=== PATIENT | female | born 1980 | race African-American/Black ===

== ENCOUNTER 2019-01-14 02:31 | Emergency (ER) | payer MEDICAID ==
[~2019-01-14] VITALS: Ht 172.7 cm; Wt 56.8 kg
[2019-01-14 03:07] LABS: BASOPHILS % (AUTO) 1.6 % (0.0-2.0); EOSINOPHILS % (AUTO) 4.8 % (1.0-6.0); HEMATOCRIT 31.2 % (36-46); HEMOGLOBIN 9.9 g/dL (12.0-16.0); LYMPHOCYTES # (AUTO) 1.9 K/uL (1.0-4.8); MEAN CORPUSCULAR HEMOGLOBIN 21.7 pg (26.0-34.0); MEAN CORPUSCULAR HGB CONC 31.8 G/dL (31.0-37.0); MEAN CORPUSCULAR VOLUME 68 fL (80-100); MONOCYTES # (AUTO) 0.5 K/uL (0.1-1.0); MONOCYTES % (AUTO) 10.9 % (2.0-9.0); NEUTROPHILS # (AUTO) 1.7 K/uL (1.8-7.7); NEUTROPHILS % (AUTO) 39.7 % (40.0-70.0); PLATELET COUNT (AUTO) 285 K/uL (150-450); RED BLOOD CELL COUNT(AUTO) 4.57 MIL/uL (4.00-5.20); RED CELL DISTRIBUTION WIDTH 19.2 % (11.5-14.5)
[2019-01-14 03:19] LABS: ANION GAP 6 mmol/L (8-16); CALCIUM, TOTAL 9.1 mg/dL (8.8-10.5); CARBON DIOXIDE 30 mmol/L (22-29); CHLORIDE 105 mmol/L (98-107); CREATININE 1.07 mg/dL (0.60-1.30); GLOMERULAR FILTR. RATE CALC > 60 mL/min (>60); GLUCOSE,RANDOM 120 mg/dL (70-110); POTASSIUM 3.4 mmol/L (3.5-5.1); SODIUM SERUM 141 mmol/L (136-145); UREA NITROGEN, BLOOD 11 mg/dL (7-18)
[2019-01-14 03:26] LABS: AMPHET/METH SCREEN,URINE NEGATIVE (NEGATIVE); BARBITURATE SCREEN, URINE NEGATIVE (NEGATIVE); BENZODIAZEPINES SCREEN,URINE NEGATIVE (NEGATIVE); CANNABINOID SCREEN,URINE NEGATIVE (NEGATIVE); COCAINE SCREEN,URINE POSITIVE (NEGATIVE); METHADONE SCREEN, URINE NEGATIVE (NEGATIVE); OPIATE SCREEN,URINE NEGATIVE (NEGATIVE)
[2019-01-14 03:27] LABS: PHENCYCLIDINE SCREEN,URINE NEGATIVE (NEGATIVE)
[2019-01-14 03:29] LABS: ALANINE AMINOTRANSFERASE 15 U/L (12-78); ALBUMIN 3.4 g/dL (3.4-5.0); ALKALINE PHOSPHATASE 73 U/L (46-116); ASPARTATE AMINOTRANSFERASE 18 U/L (15-37); BILIRUBIN,TOTAL 0.3 mg/dL (0.1-1.0); HCG,QUANTITATIVE < 1 mIU/mL (0-6); TOTAL PROTEIN, SERUM 7.3 g/dL (6.4-8.2)
[2019-01-14 05:04] VITALS: BP 119/79
[2019-01-14] MEDS ORDERED: POVIDONE-IODINE 10% 120 ML SOLUTION TP ONE (05:30)
== END 2019-01-14 06:00 | disposition home or self-care (01) ==
LOC: EMS 02:34
DX: F20.9 Schizophrenia, unspecified (principal); E11.9 Type 2 diabetes mellitus without complications; F03.90 Unspecified dementia, unspecified severity, without behavioral disturbance, psychotic disturbance, mood disturbance, and anxiety
CPT/HCPCS: 36415; 80053; 80307; 84702; 85025; 99284; G0480

== ENCOUNTER 2019-09-20 03:37 | Emergency (ER) | payer MEDICAID ==
[~2019-09-20] VITALS: Ht 175.3 cm; Wt 50.0 kg
[2019-09-20 04:33] LABS: APPEARANCE,URINE CLOUDY (CLEAR); BILIRUBIN,URINE NEGATIVE (NEGATIVE); GLUCOSE, URINE (UA) NEGATIVE (NEGATIVE); KETONES,URINE NEGATIVE (NEGATIVE); LEUKOCYTE ESTERASE ,URINE MODERATE (NEGATIVE); NITRATE,URINE POSITIVE (NEGATIVE); OCCULT BLOOD,URINE NEGATIVE (NEGATIVE); PROTEIN,URINE NEGATIVE (NEGATIVE)
[2019-09-20 04:39] LABS: AMPHET/METH SCREEN,URINE NEGATIVE (NEGATIVE); BARBITURATE SCREEN, URINE NEGATIVE (NEGATIVE); BENZODIAZEPINES SCREEN,URINE NEGATIVE (NEGATIVE); CANNABINOID SCREEN,URINE NEGATIVE (NEGATIVE); COCAINE SCREEN,URINE POSITIVE (NEGATIVE); METHADONE SCREEN, URINE NEGATIVE (NEGATIVE); OPIATE SCREEN,URINE NEGATIVE (NEGATIVE); PHENCYCLIDINE SCREEN,URINE NEGATIVE (NEGATIVE)
[2019-09-20 04:41] LABS: BACTERIA,URINE Many /HPF (None Seen); RBC,URINE 0-2 /HPF (0-2); SQUAMOUS EPITHELIAL CELL,UR Many /LPF (None Seen)
[2019-09-20 04:45] LABS: BASOPHILS % (AUTO) 1.3 % (0.0-2.0); EOSINOPHILS % (AUTO) 2.8 % (1.0-6.0); HEMATOCRIT 31.7 % (36-46); LYMPHOCYTES # (AUTO) 1.4 K/uL (1.0-4.8); LYMPHOCYTES % (AUTO) 20.8 % (22.0-44.0); MEAN CORPUSCULAR HEMOGLOBIN 22.2 pg (26.0-34.0); MEAN CORPUSCULAR HGB CONC 31.6 G/dL (31.0-37.0); MEAN CORPUSCULAR VOLUME 70 fL (80-100); MONOCYTES # (AUTO) 0.7 K/uL (0.1-1.0); MONOCYTES % (AUTO) 10.5 % (2.0-9.0); NEUTROPHILS # (AUTO) 4.3 K/uL (1.8-7.7); NEUTROPHILS % (AUTO) 64.6 % (40.0-70.0); PLATELET COUNT (AUTO) 384 K/uL (150-450); RED BLOOD CELL COUNT(AUTO) 4.52 MIL/uL (4.00-5.20); RED CELL DISTRIBUTION WIDTH 18.9 % (11.5-14.5)
[2019-09-20 04:53] LABS: ANION GAP 5 mmol/L (8-16); CARBON DIOXIDE 30 mmol/L (22-29); CHLORIDE 102 mmol/L (98-107); CREATININE 0.89 mg/dL (0.60-1.30); GLOMERULAR FILTR. RATE CALC > 60 mL/min (>60); GLUCOSE,RANDOM 108 mg/dL (70-110); POTASSIUM 3.2 mmol/L (3.5-5.1); SODIUM SERUM 137 mmol/L (136-145); UREA NITROGEN, BLOOD 6 mg/dL (7-18)
[2019-09-20 05:05] LABS: ALANINE AMINOTRANSFERASE 21 U/L (12-78); ALBUMIN 3.1 g/dL (3.4-5.0); ALKALINE PHOSPHATASE 87 U/L (46-116); ASPARTATE AMINOTRANSFERASE 16 U/L (15-37); BILIRUBIN,TOTAL 0.3 mg/dL (0.1-1.0); HCG,QUANTITATIVE < 1 mIU/mL (0-6); LIPASE 344 U/L (73-393); TOTAL PROTEIN, SERUM 7.1 g/dL (6.4-8.2)
[2019-09-20] MEDS ORDERED: CEPHALEXIN MONOHYDRATE 500 MG CAPSULE PO ONE (07:15)
[2019-09-20] MEDS ORDERED: POTASSIUM CHLORIDE 20 MEQ ER TABLET PO ONE (07:30)
[2019-09-20 11:00] VITALS: BP 110/74
== END 2019-09-20 12:04 | disposition home or self-care (01) ==
LOC: EMS 03:37
DX: F20.9 Schizophrenia, unspecified (principal); N39.0 Urinary tract infection, site not specified; E87.6 Hypokalemia; F31.9 Bipolar disorder, unspecified; F17.210 Nicotine dependence, cigarettes, uncomplicated; F11.10 Opioid abuse, uncomplicated; Z59.0 Homelessness
CPT/HCPCS: 87086

== ENCOUNTER 2020-06-23 09:00 | Emergency (ER) | payer MEDICAID ==
[~2020-06-23] VITALS: Ht 167.6 cm; Wt 68.2 kg
[2020-06-23] MEDS ORDERED: LIDOCAINE 1% 10 ML VIAL INJ ONE (11:00)
[2020-06-23] MEDS ORDERED: BACITRACIN 0.9 GM PACKET OINTMENT TP ONE (11:00)
[2020-06-23 11:48] VITALS: BP 104/62
== END 2020-06-23 12:44 | disposition home or self-care (01) ==
LOC: EMS 10:33
DX: S01.81XA Laceration without foreign body of other part of head, initial encounter (principal); S40.011A Contusion of right shoulder, initial encounter; F17.210 Nicotine dependence, cigarettes, uncomplicated; F14.10 Cocaine abuse, uncomplicated; W19.XXXA Unspecified fall, initial encounter; Y93.89 Activity, other specified; Y92.89 Other specified places as the place of occurrence of the external cause; Y99.8 Other external cause status
CPT/HCPCS: 12011; 70450; 73030; 99284; J3490

== ENCOUNTER 2021-05-11 23:22 | Emergency (ER) | payer MEDICAID ==
[~2021-05-11] VITALS: Ht 172.7 cm; Wt 56.8 kg
[2021-05-11 23:29] VITALS: BP 112/86
[2021-05-11] MEDS ORDERED: ACETAMINOPHEN 500 MG TABLET PO ONE (23:45)
[2021-05-12 00:15] LABS: APPEARANCE,URINE CLOUDY (CLEAR); BILIRUBIN,URINE NEGATIVE (NEGATIVE); GLUCOSE, URINE (UA) NEGATIVE (NEGATIVE); KETONES,URINE NEGATIVE (NEGATIVE); LEUKOCYTE ESTERASE ,URINE LARGE (NEGATIVE); NITRATE,URINE POSITIVE (NEGATIVE); OCCULT BLOOD,URINE SMALL (NEGATIVE); PROTEIN,URINE POS 1+ (NEGATIVE)
[2021-05-12 00:18] LABS: BACTERIA,URINE Many /HPF (None Seen); SQUAMOUS EPITHELIAL CELL,UR Moderate /LPF (None Seen); WBC,URINE 51-100 /HPF (0-5)
== END 2021-05-12 02:15 | disposition left against medical advice (07) ==
LOC: EMS 23:28
DX: R05 Cough (principal); Z53.21 Procedure and treatment not carried out due to patient leaving prior to being seen by health care provider
CPT/HCPCS: 81001; 87077; 87086; 87186

== ENCOUNTER 2023-12-29 19:13 | Emergency (ER) | payer MEDICAID, OTHER ==
[~2023-12-29] VITALS: Ht 172.7 cm; Wt 62.7 kg
[2023-12-29] MEDS: CEPHALEXIN MONOHYDRATE 500 MG CAPSULE PO ONE (21:24)
[2023-12-29] MEDS: SULFAMETHOX/TRIMETH DS 800-160 MG/TABLET PO ONE (21:24)
[2023-12-29] MEDS ORDERED: CEPH-558 PO (21:45)
[2023-12-29] MEDS ORDERED: SULF-261 PO (21:45)
[2023-12-29 21:53] VITALS: BP 110/60; PULSE 92; RESP 16; TEMP 98.4
[2023-12-30 01:41] LABS: GLUCOMETER DEV NAME(LOC) ER.6; GLUCOSE,POINT OF CARE 183 MG/DL (70-110)
== END 2023-12-29 22:05 | disposition home or self-care (01) ==
LOC: EMS 19:17
DX: L02.31 Cutaneous abscess of buttock (principal); L02.411 Cutaneous abscess of right axilla; E11.9 Type 2 diabetes mellitus without complications; J45.909 Unspecified asthma, uncomplicated; F31.9 Bipolar disorder, unspecified; F20.9 Schizophrenia, unspecified; F17.210 Nicotine dependence, cigarettes, uncomplicated
CPT/HCPCS: 82962; 99283

== ENCOUNTER 2024-10-22 09:15 | Inpatient (IN) | payer MEDICAID, OTHER ==
[~2024-10-22] VITALS: Ht 172.7 cm; Wt 89.6 kg
[~2024-10-22 09:15] MED LIST: CEPH-558 PO; SULF-261 PO
[2024-10-22 10:17] LABS: BASOPHILS % (AUTO) 0.7 % (0.0-2.0); EOSINOPHILS % (AUTO) 0.4 % (1.0-6.0); HEMATOCRIT 38.2 % (36-46); HEMOGLOBIN 12.4 g/dL (12.0-16.0); LYMPHOCYTES # (AUTO) 1.7 K/uL (1.0-4.8); LYMPHOCYTES % (AUTO) 27.9 % (22.0-44.0); MEAN CORPUSCULAR HEMOGLOBIN 25.1 pg (26.0-34.0); MEAN CORPUSCULAR HGB CONC 32.4 G/dL (31.0-37.0); MEAN CORPUSCULAR VOLUME 77 fL (80-100); MONOCYTES # (AUTO) 0.7 K/uL (0.1-1.0); MONOCYTES % (AUTO) 10.9 % (2.0-9.0); NEUTROPHILS # (AUTO) 3.8 K/uL (1.8-7.7); NEUTROPHILS % (AUTO) 60.1 % (40.0-70.0); PLATELET COUNT (AUTO) 276 K/uL (150-450); RED BLOOD CELL COUNT(AUTO) 4.94 MIL/uL (4.00-5.20); RED CELL DISTRIBUTION WIDTH 17.1 % (11.5-14.5); WHITE BLOOD COUNT (AUTO) 6.3 K/uL (4.5-11.0)
[2024-10-22 10:26] LABS: ANION GAP 15 mmol/L (8-16); CALCIUM, TOTAL 9.4 mg/dL (8.8-10.5); CARBON DIOXIDE 23 mmol/L (22-29); CHLORIDE 101 mmol/L (98-107); CREATININE 0.87 mg/dL (0.60-1.30); GLOMERULAR FILTR. RATE CALC > 60 mL/min (>60); GLUCOSE,RANDOM 118 mg/dL (70-110); POTASSIUM 3.1 mmol/L (3.5-5.1); SODIUM SERUM 139 mmol/L (136-145); UREA NITROGEN, BLOOD 22 mg/dL (7-18)
[2024-10-22 10:37] LABS: ALCOHOL, BLOOD (SERUM) < 3 mg/dL (0-10)
[2024-10-22 13:32] LABS: COVID AG,FIA SOURCE NASAL SWAB
[2024-10-22 13:51] LABS: SARS-COV2 (COVID) ANTIGEN,FIA Negative (Negative)
[2024-10-22] MEDS: POTASSIUM CHLORIDE 20 MEQ ER TABLET PO ONE (15:51)
[2024-10-22 18:18] VITALS: BP 154/95; PULSE 98; RESP 18; TEMP 98.8; O2SAT 100
[2024-10-22] MEDS ORDERED: MAGNESIUM HYDROXIDE SUSPENSION 30 ML UDCUP PO PRN (19:45)
[2024-10-22] MEDS ORDERED: ALBUTEROL SULFATE HFA 90 MCG/PUFF 8 GM INHALER IH PRN (19:45)
[2024-10-22] MEDS ORDERED: LOPERAMIDE HCL 2 MG CAPSULE PO PRN (19:45)
[2024-10-22] MEDS ORDERED: CloNIDine HCL 0.1 MG TABLET PO PRN (19:45)
[2024-10-22] MEDS ORDERED: DOCUSATE SODIUM 100 MG CAPSULE PO PRN (19:45)
[2024-10-22] MEDS ORDERED: ACETAMINOPHEN 325 MG TABLET PO PRN (19:45)
[2024-10-22] MEDS ORDERED: GuaiFENesin/D-METHORPHAN [SUGAR-FREE] 200-20MG/10 ML SYRUP UDCUP PO PRN (19:45)
[2024-10-22] MEDS ORDERED: MAG HYDROX/ALUMINUM HYD/SIMETH ES 30 ML SUSPENSION UDCUP PO PRN (19:45)
[2024-10-22] MEDS ORDERED: ONDANSETRON 4 MG TABLET PO PRN (19:45)
[2024-10-22] MEDS ORDERED: PETROLATUM,WHITE 28 GM JELLY TP PRN (19:45)
[2024-10-22 21:02] VITALS: BP 112/62; PULSE 130; RESP 18; TEMP 98; O2SAT 100
[2024-10-23 08:45] VITALS: BP 130/95; PULSE 134; RESP 19; TEMP 97.3; O2SAT 97
[2024-10-23 09:12] LABS: EOSINOPHILS % (AUTO) 1.2 % (1.0-6.0); HEMATOCRIT 39.1 % (36-46); HEMOGLOBIN 12.5 g/dL (12.0-16.0); LYMPHOCYTES # (AUTO) 1.8 K/uL (1.0-4.8); LYMPHOCYTES % (AUTO) 33.1 % (22.0-44.0); MEAN CORPUSCULAR HEMOGLOBIN 25.1 pg (26.0-34.0); MEAN CORPUSCULAR HGB CONC 31.9 G/dL (31.0-37.0); MEAN CORPUSCULAR VOLUME 79 fL (80-100); MONOCYTES # (AUTO) 0.6 K/uL (0.1-1.0); MONOCYTES % (AUTO) 10.7 % (2.0-9.0); NEUTROPHILS # (AUTO) 2.9 K/uL (1.8-7.7); PLATELET COUNT (AUTO) 300 K/uL (150-450); RED BLOOD CELL COUNT(AUTO) 4.97 MIL/uL (4.00-5.20); RED CELL DISTRIBUTION WIDTH 17.3 % (11.5-14.5); WHITE BLOOD COUNT (AUTO) 5.3 K/uL (4.5-11.0)
[2024-10-23 09:37] LABS: ALANINE AMINOTRANSFERASE 91 U/L (12-78); ALBUMIN 3.7 g/dL (3.4-5.0); ALKALINE PHOSPHATASE 114 U/L (46-116); ANION GAP 13 mmol/L (8-16); ASPARTATE AMINOTRANSFERASE 79 U/L (15-37); BILIRUBIN,TOTAL 0.8 mg/dL (0.1-1.0); CALCIUM, TOTAL 9.8 mg/dL (8.8-10.5); CARBON DIOXIDE 25 mmol/L (22-29); CHLORIDE 101 mmol/L (98-107); CHOL/HDL RATIO 2.6 (3.9-5.7); CHOLESTEROL 158 mg/dL (131-200); CREATININE 0.95 mg/dL (0.60-1.30); GLOMERULAR FILTR. RATE CALC > 60 mL/min (>60); GLUCOSE,RANDOM 136 mg/dL (70-110); HDL CHOLESTEROL 61 mg/dL (40-60); LDL CHOL (CALC.) 80 mg/dL (0-130); POTASSIUM 3.5 mmol/L (3.5-5.1); SODIUM SERUM 139 mmol/L (136-145); THYROID STIMULATING HORMONE 0.38 uIU/mL (0.36-3.74); TOTAL PROTEIN, SERUM 8.6 g/dL (6.4-8.2); TRIGLYCERIDES 83 mg/dL (15-150); UREA NITROGEN, BLOOD 19 mg/dL (7-18)
[2024-10-23 09:56] LABS: HEMOGLOBIN A1C 6.1 % (3.8-5.6)
[2024-10-23 11:54] VITALS: BP 142/78; PULSE 105; RESP 20
[2024-10-23] MEDS ORDERED: RisperiDONE 1 MG TABLET ONE (12:06)
[2024-10-23] MEDS: RisperiDONE 1 MG TABLET PO SCH (16:19)
[2024-10-23 20:00] VITALS: BP 123/78; PULSE 110; RESP 18; TEMP 98; O2SAT 100
[2024-10-24] MEDS: HALOPERIDOL 5 MG TABLET PO PRN (03:11)
[2024-10-24 09:50] VITALS: BP 159/91; PULSE 104; RESP 18; O2SAT 95
[2024-10-24 20:48] VITALS: BP 139/87; PULSE 100; RESP 20; TEMP 97.6; O2SAT 100
[2024-10-25 10:02] VITALS: BP 124/62; PULSE 102; RESP 18; TEMP 97.5; O2SAT 98
[2024-10-25 20:32] VITALS: BP 142/90; PULSE 107; RESP 18; TEMP 96.4; O2SAT 96
[2024-10-26 11:27] VITALS: BP 130/75; PULSE 100; RESP 18; TEMP 97.4; O2SAT 99
[2024-10-26 16:45] LABS: GLUCOMETER DEV NAME(LOC) 3E.C; GLUCOSE,POINT OF CARE 130 MG/DL (70-110)
[2024-10-26 18:40] LABS: GLUCOMETER DEV NAME(LOC) 3EX.2; GLUCOSE,POINT OF CARE 106 MG/DL (70-110)
[2024-10-26 23:26] VITALS: BP 123/78; PULSE 99; RESP 18; TEMP 97.8; O2SAT 100
[2024-10-27 06:26] LABS: GLUCOMETER DEV NAME(LOC) 3E.C; GLUCOSE,POINT OF CARE 115 MG/DL (70-110)
[2024-10-27 09:26] VITALS: BP 144/93; PULSE 88; RESP 18; TEMP 97.8; O2SAT 97
[2024-10-27] MEDS: LORazepam 2 MG TABLET PO PRN (13:49)
[2024-10-27 17:26] LABS: GLUCOMETER DEV NAME(LOC) 3E.C; GLUCOSE,POINT OF CARE 116 MG/DL (70-110)
[2024-10-27 22:53] VITALS: BP 125/87; PULSE 102; RESP 17; TEMP 98; O2SAT 97
[2024-10-28 06:26] LABS: GLUCOMETER DEV NAME(LOC) 3E.C; GLUCOSE,POINT OF CARE 115 MG/DL (70-110)
[2024-10-28 09:00] VITALS: BP 132/91; PULSE 96; RESP 17; TEMP 97.2; O2SAT 98
[2024-10-28 17:31] LABS: GLUCOMETER DEV NAME(LOC) 3EX.2; GLUCOSE,POINT OF CARE 79 MG/DL (70-110)
[2024-10-28 21:13] VITALS: BP 127/88; PULSE 108; RESP 18; TEMP 97.3; O2SAT 100
[2024-10-29 07:26] LABS: GLUCOMETER DEV NAME(LOC) 3E.C; GLUCOSE,POINT OF CARE 111 MG/DL (70-110)
[2024-10-29 10:32] VITALS: BP 146/91; PULSE 94; RESP 18; TEMP 97.8; O2SAT 99
[2024-10-29 17:45] LABS: GLUCOMETER DEV NAME(LOC) 3E.C; GLUCOSE,POINT OF CARE 146 MG/DL (70-110)
[2024-10-29 21:44] VITALS: BP 137/98; PULSE 91; RESP 19; TEMP 97.8; O2SAT 100
[2024-10-30 07:01] LABS: GLUCOMETER DEV NAME(LOC) 3E.C; GLUCOSE,POINT OF CARE 100 MG/DL (70-110)
[2024-10-30 09:00] VITALS: BP 126/85; PULSE 89; RESP 18; TEMP 97.6; O2SAT 100
[2024-10-30 17:55] LABS: GLUCOMETER DEV NAME(LOC) 3E.C; GLUCOSE,POINT OF CARE 118 MG/DL (70-110)
[2024-10-30 20:00] VITALS: BP 135/80; PULSE 90; RESP 19; TEMP 97.9; O2SAT 98
[2024-10-31 07:25] LABS: GLUCOMETER DEV NAME(LOC) 3E.C; GLUCOSE,POINT OF CARE 151 MG/DL (70-110)
[2024-10-31 09:00] VITALS: BP 109/79; PULSE 81; RESP 17; TEMP 97.9; O2SAT 95
[2024-10-31 14:10] VITALS: BP 139/79; PULSE 108; RESP 18; TEMP 97; O2SAT 96
[2024-10-31] MEDS: IBUPROFEN 400 MG TABLET PO PRN (14:10)
[2024-10-31] MEDS: ACETAMINOPHEN 325 MG TABLET PO PRN (15:45)
[2024-10-31 17:50] LABS: GLUCOMETER DEV NAME(LOC) 3E.C; GLUCOSE,POINT OF CARE 114 MG/DL (70-110)
[2024-10-31 22:51] VITALS: BP 129/82; PULSE 97; RESP 18; TEMP 97.8; O2SAT 97
[2024-10-31 22:57] VITALS: BP 129/82; PULSE 97; RESP 18; TEMP 97.8; O2SAT 97
[2024-10-31 23:54] VITALS: RESP 18
[2024-11-01 07:00] LABS: GLUCOMETER DEV NAME(LOC) 3E.C; GLUCOSE,POINT OF CARE 96 MG/DL (70-110)
[2024-11-01 08:56] VITALS: BP 147/99; PULSE 96; RESP 18; TEMP 97; O2SAT 96
[2024-11-01] MEDS: ZOLPIDEM TARTRATE 10 MG TABLET PO PRN (21:46)
[2024-11-01 22:21] VITALS: BP 155/98; PULSE 98; RESP 18; TEMP 97.2; O2SAT 100
[2024-11-02 06:36] LABS: GLUCOMETER DEV NAME(LOC) 3E.C; GLUCOSE,POINT OF CARE 101 MG/DL (70-110)
[2024-11-02 09:20] VITALS: BP 112/75; PULSE 96; RESP 18; TEMP 98.2
[2024-11-02 10:20] VITALS: BP 128/71; PULSE 71; RESP 18; TEMP 98
[2024-11-02 16:42] VITALS: BP 111/71; PULSE 76; RESP 17; TEMP 98
[2024-11-02 17:40] LABS: GLUCOMETER DEV NAME(LOC) 3E.C; GLUCOSE,POINT OF CARE 158 MG/DL (70-110)
[2024-11-02 17:42] VITALS: BP 121/68; PULSE 98; RESP 17; TEMP 98; O2SAT 0
[2024-11-02 20:49] VITALS: BP 151/89; PULSE 99; RESP 18; TEMP 97; O2SAT 0
[2024-11-03 06:31] LABS: GLUCOMETER DEV NAME(LOC) 3E.I 2; GLUCOSE,POINT OF CARE 108 MG/DL (70-110)
[2024-11-03 09:30] VITALS: BP 122/75; PULSE 96; RESP 18; TEMP 98.1
[2024-11-03 10:29] VITALS: BP 126/71; PULSE 71; RESP 17; TEMP 98
[2024-11-03] MEDS: NICOTINE 14 MG/24 HOUR PATCH TD PRN (11:12)
[2024-11-03] MEDS: RisperiDONE 2 MG TABLET PO SCH (16:17)
[2024-11-03 16:40] LABS: GLUCOMETER DEV NAME(LOC) 3E.I 2; GLUCOSE,POINT OF CARE 133 MG/DL (70-110)
[2024-11-03 20:53] VITALS: BP 119/78; PULSE 98; RESP 18; TEMP 97; O2SAT 100
[2024-11-03 22:00] VITALS: BP 132/81; PULSE 88; RESP 19; TEMP 97.9; O2SAT 98
[2024-11-03 23:05] VITALS: RESP 18
[2024-11-04 06:26] LABS: GLUCOMETER DEV NAME(LOC) 3E.I 2; GLUCOSE,POINT OF CARE 104 MG/DL (70-110)
[2024-11-04 09:37] VITALS: BP 115/75; PULSE 76; RESP 16; TEMP 98.1; O2SAT 98
[2024-11-04 16:26] LABS: GLUCOMETER DEV NAME(LOC) 3E.I 2; GLUCOSE,POINT OF CARE 141 MG/DL (70-110)
[2024-11-04 17:42] VITALS: BP 116/71; RESP 18; TEMP 97.4
[2024-11-04 18:42] VITALS: BP 128/81; RESP 18; TEMP 97
[2024-11-04 20:41] VITALS: BP 142/100; PULSE 115; RESP 18; TEMP 98; O2SAT 100
[2024-11-05 06:21] LABS: GLUCOMETER DEV NAME(LOC) 3E.I 2; GLUCOSE,POINT OF CARE 106 MG/DL (70-110)
[2024-11-05 10:24] VITALS: BP 97/59; PULSE 97; RESP 18; TEMP 97.7; O2SAT 99
[2024-11-05 16:30] VITALS: BP 111/69; PULSE 81; RESP 17; TEMP 98
[2024-11-05 17:30] VITALS: BP 127/81; PULSE 74; TEMP 98
[2024-11-05 17:35] LABS: GLUCOMETER DEV NAME(LOC) 3E.I 2; GLUCOSE,POINT OF CARE 119 MG/DL (70-110)
[2024-11-05 22:21] VITALS: BP 125/85; PULSE 98; RESP 18; TEMP 97.3; O2SAT 98
[2024-11-06 06:05] LABS: GLUCOMETER DEV NAME(LOC) 3E.I 2; GLUCOSE,POINT OF CARE 99 MG/DL (70-110)
[2024-11-06 09:35] VITALS: BP 119/71; PULSE 91; RESP 18; TEMP 97.3; O2SAT 98
[2024-11-06 10:34] VITALS: RESP 18
[2024-11-06 13:12] VITALS: BP 119/71; PULSE 91; RESP 18; TEMP 97.9; O2SAT 98
[2024-11-06 17:35] LABS: GLUCOMETER DEV NAME(LOC) 3E.I 2; GLUCOSE,POINT OF CARE 143 MG/DL (70-110)
[2024-11-06 20:00] VITALS: BP 118/82; PULSE 93; RESP 18; TEMP 97.1; O2SAT 100
[2024-11-06 21:07] VITALS: BP 122/78; PULSE 88; RESP 18; TEMP 97; O2SAT 98
[2024-11-06 22:10] VITALS: RESP 18
[2024-11-07 06:55] LABS: GLUCOMETER DEV NAME(LOC) 3E.I 2; GLUCOSE,POINT OF CARE 123 MG/DL (70-110)
[2024-11-07 11:36] VITALS: RESP 18
[2024-11-07 12:38] VITALS: RESP 18
[2024-11-07 17:40] LABS: GLUCOMETER DEV NAME(LOC) 3E.I 2; GLUCOSE,POINT OF CARE 124 MG/DL (70-110)
[2024-11-07 18:34] LABS: APPEARANCE,URINE HAZY (CLEAR); BILIRUBIN,URINE NEGATIVE (NEGATIVE); COLOR,URINE LIGHT YELLOW (YELLOW); GLUCOSE, URINE (UA) NEGATIVE (NEGATIVE); KETONES,URINE NEGATIVE (NEGATIVE); LEUKOCYTE ESTERASE ,URINE TRACE (NEGATIVE); NITRATE,URINE NEGATIVE (NEGATIVE); OCCULT BLOOD,URINE MODERATE (NEGATIVE); PROTEIN,URINE NEGATIVE (NEGATIVE); SPECIFIC GRAVITIY, URINE 1.007 (1.003-1.030); UROBILINOGEN,URINE <=1.0 mg/dL (<=1.0)
[2024-11-07 21:09] LABS: BACTERIA,URINE Moderate /HPF (None Seen); SQUAMOUS EPITHELIAL CELL,UR Few /LPF (None Seen)
[2024-11-07 21:18] VITALS: BP 138/94; PULSE 105; RESP 17; TEMP 96.9
[2024-11-07 21:30] VITALS: RESP 17
[2024-11-08 06:31] LABS: GLUCOMETER DEV NAME(LOC) 3E.I 2; GLUCOSE,POINT OF CARE 109 MG/DL (70-110)
[2024-11-08 09:00] VITALS: BP 124/79; PULSE 101; RESP 17; TEMP 98.1
[2024-11-08] MEDS ORDERED: RISP-32 PO (12:46)
== END 2024-11-08 16:01 | disposition home or self-care (01) | DRG 750 ==
LOC: EMS 09:21 → 3EI 17:49
PROVIDERS: ADMIT Psychiatry & Neurology Child & Adolescent Psychiatry; ATTEND Psychiatry & Neurology Child & Adolescent Psychiatry
PROC: GZHZZZZ Group Psychotherapy (ICD-10-PCS; principal; 2024-10-23)
PROC: GZ56ZZZ Individual Psychotherapy, Supportive (ICD-10-PCS; 2024-10-23)
DX: F20.0 Paranoid schizophrenia (principal); E11.9 Type 2 diabetes mellitus without complications; E87.6 Hypokalemia; Z20.822 Contact with and (suspected) exposure to COVID-19; J45.909 Unspecified asthma, uncomplicated; F17.200 Nicotine dependence, unspecified, uncomplicated; F12.90 Cannabis use, unspecified, uncomplicated; G47.00 Insomnia, unspecified; M79.671 Pain in right foot
CPT/HCPCS: 80048; 80053; 80061; 81001; 82962; 83036; 84443; 85025; 87077; 87086; 87186; 99285; G0480

== ENCOUNTER 2025-04-22 07:02 | Inpatient (IN) | payer MEDICAID, OTHER ==
[~2025-04-22] VITALS: Ht 167.6 cm; Wt 63.9 kg
[~2025-04-22 07:02] MED LIST changes: -CEPH-558 PO; +RISP-32 PO; -SULF-261 PO
[2025-04-22 07:27] LABS: PLATELET COUNT (AUTO) 334 K/uL (150-450); RED BLOOD CELL COUNT(AUTO) 4.94 MIL/uL (4.00-5.20); RED CELL DISTRIBUTION WIDTH 16.3 % (11.5-14.5); WHITE BLOOD COUNT (AUTO) 5.7 K/uL (4.5-11.0)
[2025-04-22 07:33] LABS: CALCIUM, TOTAL 8.9 mg/dL (8.8-10.5); CREATININE 0.85 mg/dL (0.60-1.30); GLOMERULAR FILTR. RATE CALC > 60 mL/min (>60); GLUCOSE,RANDOM 119 mg/dL (70-110); SODIUM SERUM 140 mmol/L (136-145); UREA NITROGEN, BLOOD 8 mg/dL (7-18)
[2025-04-22] MEDS: POTASSIUM CHL 10 MEQ/WATER 50 ML IV SCH (07:54)
[2025-04-22] MEDS: POTASSIUM CHLORIDE 20 MEQ ER TABLET PO ONE (07:54)
[2025-04-22 08:19] LABS: COVID AG,FIA SOURCE NASAL SWAB
[2025-04-22 08:49] LABS: SARS-COV2 (COVID) ANTIGEN,FIA Negative (Negative)
[2025-04-22] MEDS: MAGNESIUM SULFATE 2 GM/WATER 50 ML IV ONE (09:18)
[2025-04-22] MEDS ORDERED: MAGNESIUM SULFATE 2 GM/WATER 50 ML IV PRN (11:45)
[2025-04-22] MEDS ORDERED: MAGNESIUM OXIDE 400 MG TABLET PO PRN (11:45)
[2025-04-22] MEDS ORDERED: POTASSIUM CHL 10 MEQ/WATER 50 ML IV PRN (11:45)
[2025-04-22] MEDS ORDERED: MAGNESIUM SULFATE 4 GM/WATER 100 ML IV PRN (11:45)
[2025-04-22] MEDS ORDERED: ONDANSETRON HCL 4 MG/2 ML VIAL IVP PRN (11:45)
[2025-04-22] MEDS ORDERED: ZOLPIDEM TARTRATE 5 MG TABLET PO PRN (11:45)
[2025-04-22] MEDS: SODIUM CHLORIDE 0.9% 1,000 ML IV ONE (11:52)
[2025-04-22] MEDS: POTASSIUM CHLORIDE 20 MEQ ER TABLET PO PRN (14:04)
[2025-04-22 15:05] VITALS: BP 133/93; PULSE 62; RESP 18; TEMP 97.7; O2SAT 99
[2025-04-22 15:41] VITALS: BP 122/82; PULSE 70; RESP 17; TEMP 97.7; O2SAT 98
[2025-04-22] MEDS: ACETAMINOPHEN 325 MG TABLET PO PRN (16:26)
[2025-04-22 18:36] LABS: PH,URINE DRUG SCREEN 5.5 (5.0-8.0)
[2025-04-22 18:37] LABS: APPEARANCE,URINE HAZY (CLEAR); GLUCOSE, URINE (UA) TRACE mg/dL (NEGATIVE); LEUKOCYTE ESTERASE ,URINE MODERATE (NEGATIVE); NITRATE,URINE NEGATIVE (NEGATIVE); OCCULT BLOOD,URINE NEGATIVE (NEGATIVE); SPECIFIC GRAVITIY, URINE 1.012 (1.003-1.030)
[2025-04-22 18:41] LABS: AMPHET/METH SCREEN,URINE NEGATIVE (NEGATIVE); BARBITURATE SCREEN, URINE NEGATIVE (NEGATIVE); CANNABINOID SCREEN,URINE POSITIVE (NEGATIVE); COCAINE SCREEN,URINE POSITIVE (NEGATIVE); METHADONE SCREEN, URINE NEGATIVE (NEGATIVE)
[2025-04-22 18:49] LABS: ALCOHOL, URINE DRUG SCREEN NEGATIVE (NEGATIVE)
[2025-04-22 19:05] LABS: SQUAMOUS EPITHELIAL CELL,UR Few /LPF (None Seen)
[2025-04-22 19:42] VITALS: BP 126/86; PULSE 80; RESP 19; TEMP 97.7; O2SAT 99
[2025-04-22 23:29] VITALS: BP 129/95; PULSE 78; RESP 18; TEMP 97.7; O2SAT 99
[2025-04-22] MEDS: LORazepam 2 MG/ML VIAL IVP PRN (23:41)
[2025-04-23 03:13] VITALS: BP 111/92; PULSE 65; RESP 18; TEMP 97.5; O2SAT 100
[2025-04-23 08:02] LABS: PLATELET COUNT (AUTO) 279 K/uL (150-450); RED BLOOD CELL COUNT(AUTO) 4.53 MIL/uL (4.00-5.20); RED CELL DISTRIBUTION WIDTH 16.6 % (11.5-14.5); WHITE BLOOD COUNT (AUTO) 4.8 K/uL (4.5-11.0)
[2025-04-23 08:16] VITALS: BP 127/93; PULSE 76; RESP 18; TEMP 97.7; O2SAT 98
[2025-04-23 08:18] LABS: CALCIUM, TOTAL 8.6 mg/dL (8.8-10.5); CREATININE 0.71 mg/dL (0.60-1.30); GLOMERULAR FILTR. RATE CALC > 60 mL/min (>60); GLUCOSE,RANDOM 93 mg/dL (70-110); SODIUM SERUM 141 mmol/L (136-145); UREA NITROGEN, BLOOD 7 mg/dL (7-18)
[2025-04-23] MEDS: FAMOTIDINE 20 MG TABLET PO SCH (08:19)
[2025-04-23 12:45] VITALS: BP 104/68; PULSE 72; RESP 17; TEMP 98.1; O2SAT 98
[2025-04-23 15:33] VITALS: BP 110/74; PULSE 75; RESP 18; TEMP 98; O2SAT 98
[2025-04-23 20:11] VITALS: BP 117/79; PULSE 76; RESP 18; TEMP 98.1; O2SAT 98
[2025-04-24 04:33] VITALS: BP 107/64; PULSE 68; RESP 18; TEMP 97.8; O2SAT 100
[2025-04-24 08:12] VITALS: BP 110/80; PULSE 72; RESP 18; TEMP 97.2; O2SAT 100
[2025-04-24 11:39] VITALS: BP 109/69; PULSE 100; RESP 19; TEMP 98.4; O2SAT 100
[2025-04-24 16:11] VITALS: BP 107/71; PULSE 94; RESP 18; TEMP 98.4; O2SAT 100
[2025-04-24] MEDS: PALIPERIDONE PALMITATE 234 MG/1.5 ML SYRINGE IM ONE (18:40)
[2025-04-24 20:18] VITALS: BP 106/74; PULSE 93; RESP 18; TEMP 98.1; O2SAT 99
[2025-04-24] MEDS: GABAPENTIN 300 MG CAPSULE PO SCH (20:23)
[2025-04-24] MEDS: MELATONIN 5 MG TABLET PO SCH (20:24)
[2025-04-25 00:22] VITALS: BP 100/70; PULSE 90; RESP 18; TEMP 98.6; O2SAT 100
[2025-04-25 05:15] VITALS: BP 106/77; PULSE 90; RESP 16; TEMP 98.1; O2SAT 98
[2025-04-25] MEDS ORDERED: SODIUM CHLORIDE 0.9% 500 ML IV ONE (06:14)
[2025-04-25] MEDS: DULoxetine HCL 20 MG CAPSULE PO SCH (08:06)
[2025-04-25] MEDS: NALTREXONE HCL 50 MG TABLET PO SCH (08:06)
[2025-04-25 08:09] VITALS: BP 105/78; PULSE 85; RESP 18; TEMP 98.2; O2SAT 99
[2025-04-25 11:41] VITALS: BP 113/72; PULSE 87; RESP 18; TEMP 97.7; O2SAT 100
[2025-04-25 15:40] VITALS: BP 103/67; PULSE 94; RESP 18; TEMP 98.1; O2SAT 100
[2025-04-25 15:59] LABS: PLATELET COUNT (AUTO) 280 K/uL (150-450); RED BLOOD CELL COUNT(AUTO) 4.62 MIL/uL (4.00-5.20); RED CELL DISTRIBUTION WIDTH 17.0 % (11.5-14.5); WHITE BLOOD COUNT (AUTO) 5.1 K/uL (4.5-11.0)
[2025-04-25 16:10] LABS: CALCIUM, TOTAL 8.5 mg/dL (8.8-10.5); CREATININE 0.60 mg/dL (0.60-1.30); GLOMERULAR FILTR. RATE CALC > 60 mL/min (>60); GLUCOSE,RANDOM 104 mg/dL (70-110); SODIUM SERUM 140 mmol/L (136-145); UREA NITROGEN, BLOOD 7 mg/dL (7-18)
[2025-04-25 16:14] LABS: ASPARTATE AMINOTRANSFERASE 11 U/L (15-37); TOTAL PROTEIN, SERUM 6.2 g/dL (6.4-8.2)
[2025-04-25] MEDS: CEPHALEXIN MONOHYDRATE 500 MG CAPSULE PO SCH (18:19)
[2025-04-25 19:36] VITALS: BP 115/79; PULSE 85; RESP 18; TEMP 98.2; O2SAT 100
[2025-04-26 03:18] VITALS: BP 121/94; PULSE 79; RESP 18; TEMP 97.5; O2SAT 99
[2025-04-26 09:03] VITALS: BP 108/80; PULSE 87; RESP 19; TEMP 97.5; O2SAT 99
[2025-04-26 20:48] VITALS: BP 103/75; PULSE 94; RESP 18; TEMP 98.1; O2SAT 97
[2025-04-27 03:38] VITALS: BP 105/72; PULSE 79; RESP 18; TEMP 97.2; O2SAT 97
[2025-04-27 08:00] VITALS: BP 115/82; PULSE 87; RESP 19; TEMP 97.7; O2SAT 97
[2025-04-27 15:39] VITALS: BP 111/70; PULSE 91; RESP 18; TEMP 97.3; O2SAT 98
[2025-04-27 19:33] VITALS: BP 114/77; PULSE 94; RESP 18; TEMP 97.7; O2SAT 98
[2025-04-28 04:20] VITALS: BP 114/75; PULSE 85; RESP 18; TEMP 98.3; O2SAT 96
[2025-04-28 08:43] VITALS: BP 109/77; PULSE 78; RESP 20; TEMP 98.4; O2SAT 97
[2025-04-28] MEDS: PALIPERIDONE PALMITATE 156 MG/ML SYRINGE IM ONE (08:50)
[2025-04-28 15:19] VITALS: BP 107/70; PULSE 93; RESP 19; TEMP 97.9; O2SAT 97
[2025-04-28 20:00] VITALS: BP 101/73; PULSE 97; RESP 18; TEMP 98.6; O2SAT 96
[2025-04-29 08:36] VITALS: BP 108/77; PULSE 73; RESP 18; TEMP 97.7; O2SAT 100
[2025-04-29 15:25] VITALS: BP 111/86; PULSE 104; RESP 18; TEMP 98.8; O2SAT 94; O2SAT 98
[2025-04-29 20:49] VITALS: BP 106/72; PULSE 80; RESP 18; TEMP 97.9; O2SAT 98
[2025-04-30 06:28] VITALS: BP 103/61; PULSE 79; RESP 18; TEMP 97.9; O2SAT 98
[2025-04-30 13:05] LABS: GLUCOMETER DEV NAME(LOC) 6S.2; GLUCOSE,POINT OF CARE 101 MG/DL (70-110)
[2025-04-30 16:29] VITALS: BP 99/64; PULSE 98; RESP 18; TEMP 98.2; O2SAT 99
[2025-04-30] MEDS: MAGNESIUM HYDROXIDE SUSPENSION 30 ML UDCUP PO PRN (18:01)
[2025-04-30 20:00] VITALS: BP 94/61; PULSE 83; RESP 18; TEMP 97.7; O2SAT 97
[2025-05-01 04:00] VITALS: RESP 18
[2025-05-01 08:00] VITALS: BP 110/72; PULSE 66; RESP 19; TEMP 98; O2SAT 98
[2025-05-01 19:23] VITALS: BP 93/55; PULSE 87; RESP 18; TEMP 98.4; O2SAT 99
[2025-05-02 04:55] VITALS: BP 110/75; PULSE 81; RESP 19; TEMP 98.1; O2SAT 97
[2025-05-02 08:00] VITALS: BP 127/85; PULSE 77; RESP 19; TEMP 97.9
[2025-05-02] MEDS: GABAPENTIN 400 MG CAPSULE PO SCH (12:55)
[2025-05-02 15:45] VITALS: BP 108/69; PULSE 91; RESP 19; TEMP 98.2; O2SAT 99
[2025-05-02 19:27] VITALS: BP 100/61; PULSE 86; RESP 18; TEMP 98.2; O2SAT 98
[2025-05-03 04:40] VITALS: BP 126/72; PULSE 80; RESP 18; TEMP 97.6; O2SAT 97
[2025-05-03 08:00] VITALS: BP 115/77; PULSE 94; RESP 19; TEMP 98; O2SAT 97
[2025-05-03] MEDS: DULoxetine HCL 30 MG CAPSULE PO SCH (08:12)
[2025-05-03 11:02] LABS: COVID AG,FIA SOURCE NASAL SWAB
[2025-05-03 11:54] LABS: SARS-COV2 (COVID) ANTIGEN,FIA Positive (Negative)
[2025-05-03] MEDS ORDERED: DULO30CA62 PO (16:35)
[2025-05-03] MEDS ORDERED: GABA-1201 PO (16:36)
[2025-05-03] MEDS ORDERED: MELA5TAB40 PO (16:36)
[2025-05-03] MEDS ORDERED: FAMO20 PO (16:36)
[2025-05-03] MEDS ORDERED: RISP3TAB77 PO (16:37)
[2025-05-03] MEDS ORDERED: NALT50TA33 PO (16:37)
[2025-05-03] MEDS ORDERED: ACET-2247 PO (16:38)
[2025-05-03] MEDS ORDERED: MAGN-169 PO (16:38)
[2025-05-03 18:00] VITALS: BP 102/72; PULSE 87; RESP 18; TEMP 97.8; O2SAT 99
== END 2025-05-03 18:28 | disposition home or self-care (01) | DRG 425 ==
LOC: EMS 07:06 → EDH 10:58 → 5N 14:18 → 6N 04-25 11:00
PROVIDERS: ADMIT Internal Medicine; ATTEND Internal Medicine
PROC: GZ56ZZZ Individual Psychotherapy, Supportive (ICD-10-PCS; principal; 2025-04-26)
DX: E87.6 Hypokalemia (principal); E44.0 Moderate protein-calorie malnutrition; F25.9 Schizoaffective disorder, unspecified; Z59.00 Homelessness unspecified; N39.0 Urinary tract infection, site not specified; E83.42 Hypomagnesemia; B96.20 Unspecified Escherichia coli [E. coli] as the cause of diseases classified elsewhere; F15.10 Other stimulant abuse, uncomplicated; Z60.8 Other problems related to social environment; Z68.22 Body mass index [BMI] 22.0-22.9, adult; Z63.9 Problem related to primary support group, unspecified; Z55.8 Other problems related to education and literacy; Z65.3 Problems related to other legal circumstances
CPT/HCPCS: 80048; 80053; 80307; 81001; 82040; 82962; 83735; 84132; 84703; 85025; 87077; 87086; 87186; 87389; 93005; 96361; 96365; 96368; 97116; 97162; 97167; 97530; 97535; 99285; G0480; J2060; J3475; J3480; J7040; 36415-L1; 36415-TC

== ENCOUNTER 2025-06-03 04:39 | Emergency (ER) | payer MEDICAID, OTHER ==
[~2025-06-03] VITALS: Ht 172.7 cm; Wt 59.1 kg
[~2025-06-03 04:39] MED LIST changes: +ACET-2247 PO; +DULO30CA62 PO; +FAMO20 PO; +GABA-1201 PO; +MAGN-169 PO; +MELA5TAB40 PO; +NALT50TA33 PO; -RISP-32 PO; +RISP3TAB77 PO
[2025-06-03 04:51] VITALS: TEMP 98.8
[2025-06-03] MEDS: BACITRACIN 0.9 GM PACKET OINTMENT TP ONE (06:40)
[2025-06-03 07:15] LABS: PLATELET COUNT (AUTO) 257 K/uL (150-450); RED BLOOD CELL COUNT(AUTO) 4.82 MIL/uL (4.00-5.20); RED CELL DISTRIBUTION WIDTH 15.6 % (11.5-14.5); WHITE BLOOD COUNT (AUTO) 4.0 K/uL (4.5-11.0)
[2025-06-03 07:29] LABS: CALCIUM, TOTAL 9.2 mg/dL (8.8-10.5); CREATININE 1.14 mg/dL (0.60-1.30); GLOMERULAR FILTR. RATE CALC > 60 mL/min (>60); GLUCOSE,RANDOM 68 mg/dL (70-110); SODIUM SERUM 140 mmol/L (136-145); UREA NITROGEN, BLOOD 15 mg/dL (7-18)
[2025-06-03 07:32] LABS: ALCOHOL, BLOOD (SERUM) < 3 mg/dL (0-10)
[2025-06-03] MEDS ORDERED: BACI28.410 TP (08:01)
[2025-06-03 08:12] VITALS: BP 107/68; PULSE 82; RESP 16; O2SAT 100
== END 2025-06-03 08:14 | disposition home or self-care (01) ==
LOC: EMS 04:40
DX: S00.01XA Abrasion of scalp, initial encounter (principal); F14.10 Cocaine abuse, uncomplicated; E11.9 Type 2 diabetes mellitus without complications; F41.9 Anxiety disorder, unspecified; F20.9 Schizophrenia, unspecified; F31.9 Bipolar disorder, unspecified; J45.909 Unspecified asthma, uncomplicated; R51.9 Headache, unspecified; F12.90 Cannabis use, unspecified, uncomplicated; Z79.899 Other long term (current) drug therapy
CPT/HCPCS: 99283; 80048; 83735; 84703; 85025; 36415; G0480

== ENCOUNTER 2025-06-27 07:39 | Emergency (ER) | payer OTHER ==
[~2025-06-27] VITALS: Ht 172.7 cm; Wt 58.1 kg
[~2025-06-27 07:39] MED LIST changes: +BACI28.410 TP
[2025-06-27 07:50] VITALS: TEMP 98
[2025-06-27 08:26] LABS: CALCIUM, TOTAL 9.2 mg/dL (8.8-10.5); CREATININE 0.89 mg/dL (0.60-1.30); GLOMERULAR FILTR. RATE CALC > 60 mL/min (>60); GLUCOSE,RANDOM 67 mg/dL (70-110); PLATELET COUNT (AUTO) 241 K/uL (150-450); RED BLOOD CELL COUNT(AUTO) 5.22 MIL/uL (4.00-5.20); RED CELL DISTRIBUTION WIDTH 14.9 % (11.5-14.5); SODIUM SERUM 138 mmol/L (136-145); UREA NITROGEN, BLOOD 10 mg/dL (7-18); WHITE BLOOD COUNT (AUTO) 4.1 K/uL (4.5-11.0)
[2025-06-27 08:34] LABS: ASPARTATE AMINOTRANSFERASE 15.0 U/L (15-37); TOTAL PROTEIN, SERUM 7.8 g/dL (6.4-8.2)
[2025-06-27 08:39] LABS: TROPONIN I-HIGH SENSITIVITY Less Than 4 ng/L (<51)
[2025-06-27 08:40] LABS: PREGNANCY RESULT, SERUM NEGATIVE (NEGATIVE)
[2025-06-27] MEDS: DOXYCYCLINE HYCLATE 100 MG TABLET PO ONE (09:12)
[2025-06-27 09:28] LABS: APPEARANCE,URINE CLEAR (CLEAR); GLUCOSE, URINE (UA) NEGATIVE (NEGATIVE); LEUKOCYTE ESTERASE ,URINE LARGE (NEGATIVE); NITRATE,URINE NEGATIVE (NEGATIVE); OCCULT BLOOD,URINE NEGATIVE (NEGATIVE); SPECIFIC GRAVITIY, URINE 1.011 (1.003-1.030)
[2025-06-27 09:39] LABS: SQUAMOUS EPITHELIAL CELL,UR Moderate /LPF (None Seen)
[2025-06-27] MEDS: CefTRIAXone SODIUM 1 GM/VIAL IM ONE (09:40)
[2025-06-27] MEDS: LIDOCAINE/PF 1% 2 ML VIAL IM ONE (09:40)
[2025-06-27] MEDS ORDERED: CEPH-558 PO (09:43)
[2025-06-27] MEDS ORDERED: DOXY-354 PO (09:43)
[2025-06-27] MEDS ORDERED: METR500 PO (11:44)
[2025-06-27 11:58] LABS: PLATELET MORPHOLOGY COMMENT GIANT PLTS PRESENT
[2025-06-27 13:51] VITALS: BP 116/76; PULSE 64; RESP 16; O2SAT 98
[2025-06-29 11:08] LABS: RPR QUANT. (TITER) 1:2 titer (NonRea<1:1); TREPONEMA PALLIDUM AB -TPPA Reactive (Non Reactive)
== END 2025-06-27 15:44 | disposition home or self-care (01) ==
LOC: EMS 07:40
DX: R07.89 Other chest pain (principal); F14.90 Cocaine use, unspecified, uncomplicated; N39.0 Urinary tract infection, site not specified; N76.0 Acute vaginitis; A59.9 Trichomoniasis, unspecified; B96.89 Other specified bacterial agents as the cause of diseases classified elsewhere; F12.90 Cannabis use, unspecified, uncomplicated; F17.210 Nicotine dependence, cigarettes, uncomplicated; E11.9 Type 2 diabetes mellitus without complications; F20.9 Schizophrenia, unspecified; F31.9 Bipolar disorder, unspecified; J45.909 Unspecified asthma, uncomplicated; Z11.3 Encounter for screening for infections with a predominantly sexual mode of transmission; Z79.899 Other long term (current) drug therapy
CPT/HCPCS: 99285; 71045; 86780; 86593; 86592; 80048; 80076; 81001; 84484; 84703; 85025; 87077; 87086; 87210; 36415; 87491; 87591; 93005; 96372; 87389; J0696; J3490; 87186